=== PATIENT | female | born 1990 | race Caucasian/White ===

== ENCOUNTER 2016-09-05 09:20 | Inpatient (IN) | payer OTHER ==
[2016-09-05 10:39] LABS: BASOPHIL 0.3 % (0-2.0); MCHC 34.5 g/dl (32.0-36.0); MEAN CELL VOLUME 86.9 fl (80-96); MEAN PLT VOLUME 9.6 fl (7.5-11.1); NEUTROPHILS 79.7 % (42.8-82.8); PLATELET COUNT 164 K/MM3 (134-434); RDW 12.8 % (11.6-15.6)
[2016-09-05 10:54] LABS: INR 0.89 (0.82-1.09); PROTHROMBIN TIME (PATIENT) 9.8 SEC (9.98-11.88)
[2016-09-05 10:57] LABS: ACTIVATED PTT 25.2 SECONDS (26.9-34.4)
[2016-09-05 11:02] VITALS: BMI 26.7
[2016-09-05 11:05] LABS: CALCIUM 9.3 mg/dL (8.5-10.1); COCKROFT - GAULT 121.125; CREATININE 0.8 mg/dL (0.55-1.02)
--- NOTE | 2016-09-05 11:10 | HP ---
Past Medical History - Primary Care Physician PCP:: Alberta Martinez - Admission Chief Complaint: 26 yrs 39.6/7 weeks admitted in labor , onset at 5.30 pm . History of Present Illness: PNC at [facility] . Wt gain 25 Lbs . work Up : B Pos, Rpr nr, Hbsag neg, Rubella pos, , Pngt 110, Afp neg,, Hiv neg, course uneventful. 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 Weeks Gestation by Dates: 39.6 ...EDC by Dates: 09/06/16 ...EDC by Sono: 09/06/16 Heme/Onc: Yes: Anemia Infectious Disease: Yes: STD's (HPV pos gc/ct neg). No: AIDS, HIV, Tuberculosis (Quantiferon neg) - Past Surgical History Past Surgical History: Yes: None Hx Myomectomy: No Hx Transabdominal Cerclage: No - Smoking History Smoking history: Never smoked - Alcohol/Substance Use Hx Alcohol Use: No History of Substance Use: reports: None Home Medications - Allergies Allergies/Adverse Reactions: Allergies Allergy/AdvReac Type Severity Reaction Status Date / Time No Known Allergies Allergy Verified 09/05/16 11:02 - Home Medications Home Medications: Ambulatory Orders Vitamins (Sjr) - 1 tab PO DAILY 09/05/16 Physical Exam - Maternity Vital Signs: Selected Entries 09/05/16 10:54 Temperature 96 F L Pulse Rate 20 L Blood Pressure 137/79 Constitutional: Yes: Well Nourished, Mild Distress Eyes: Yes: WNL HENT: Yes: WNL Neck: Yes: WNL Cardiovascular: Yes: WNL Lungs: Clear to auscultation Breast(s): Yes: WNL - Abdominal Exam/OB Fundal Height: 38 Number of Fetuses: Single Presentation: Vertex Contractions: Yes Regularity: Irregular (q5-6 min) Intensity: Mild/Mod Monitor Mode: External Heart Rate (range): 130 Heart Rate Location: [facility] Category: I Accelerations: Uniform Decelerations: None - Vaginal Exam/OB Vaginal Bleediing: Bloody Show Speculum Exam: No Dilatation (cm): 4 Effacement (%): 80 Amniotic Membrane Status: Intact Presentation: Vertex/Position (exam at 10.30am) Station: -2 (-2/-1) - Physical Exam Musculoskeletal: Yes: WNL Extremities: Yes: WNL. No: Calf Tenderness Edema: Yes Edema: LLE: 1+, RLE: 1+ Integumentary: Yes: Rash (on Right cheek , erythematous large 2cm round plaque) , Tattoos Deep Tendon Reflex Grade: Normal +2 ...Motor Strength: WNL Psychiatric: Yes: WNL, Alert, Oriented - Labs Lab Results: CBC, BMP 09/05/16 10:13 Laboratory Tests 09/05/16 09/05/16 10:15 10:15 INR 0.89 PTT (Actin FS) 25.2 L Sodium 138 Potassium 3.9 Chloride 105 Carbon Dioxide 21 BUN 11 Creatinine 0.8 Random Glucose 91 Calcium 9.3 Laboratory Tests 09/05/16 10:20 Blood Type B POSITIVE Problem List - Problems (1) with 39 completed weeks gestation Code(s): Z3A.39 - 39 WEEKS GESTATION OF (2) Labor established Code(s): EEY3301 - Assessment/Plan 26 yrs 39.6/7 weeks in labor GBS neg, Plan pt prefers epidural labor analgesia Pitocin Augmentation . Trial vaginal delivery
[2016-09-05] MEDS ORDERED: BUTORPHANOL TARTRATE 1 MG/ML VIAL IVPB PRN (11:22)
[2016-09-05] MEDS ORDERED: ELECTROLYTE-148 SOLN 1,000 ML IV SCH (11:30)
[2016-09-05] MEDS ORDERED: OXYTOCIN 15 UNITS/ LR 250 ML 250 ML IVPB SCH (11:30)
[2016-09-05] MEDS ORDERED: FENTANYL/BUPIVACAINE/NS/PF - PCEA - 50 ML DISP.SYRIN EP SCH (13:00)
--- NOTE | 2016-09-05 14:55 | PN ---
Progress Note, Labor Vaginal Exam #1 Labor Exam Date: 09/05/16 Labor Exam Time: 14:40 Heart Rate (range): 110-120 Dilatation: 8 Effacement (%): 100 Amniotic Membrane Status: Ruptured (SROM clear at 1435. hr) Station: +1 Remarks: fhr cat-1 uc 2-3 min Pitocin Augmentation started at 11.30 hr Epidural labor analgesia was given at 13.00hr Vaginal Exam #2 Labor Exam Date: 09/05/16 Labor Exam Time: 16:10 Heart Rate (range): 110-115 Dilatation: antlip Effacement (%): 100 Amniotic Membrane Status: Ruptured Presentation: Vertex/Position Station: +2 Remarks: fhr cat-1 uc2min pt has no sensation of pressure yet Selected Entries 09/05/16 09/05/16 09/05/16 14:01 14:15 14:30 Temperature 97.5 F L Pulse Rate 20 L 66 Blood Pressure 121/78 133/83 09/05/16 14:45 Temperature Pulse Rate 66 Blood Pressure 118/97 Vaginal Exam #3 Labor Exam Date: 09/05/16 Labor Exam Time: 17:00 Heart Rate (range): 100-110 Dilatation: 10 Effacement (%): 100 Amniotic Membrane Status: Ruptured Presentation: Vertex/Position Station: +3 Remarks: fhr cat-1 uc 1-2 min pt encouraged to push Selected Entries 09/05/16 17:00 Temperature 97.8 F Pulse Rate 64 Blood Pressure 133/84
--- NOTE | 2016-09-05 18:20 | PN ---
Delivery - Delivery Vaginal Delivery: No Problems, Spontaneous Type of Anesthesia: Epidural Episiotomy/Laceration: Midline (episiotomy sutured in layers with chr catgut #2 pr mucosa & sphincter was intact) EBL (cc): 350 Delivery, Single - Stages of Labor Date 1st Stage Initiatied: 09/05/16 Time 1st Stage Initiated: 05:30 Date 2nd Stage Initiated: 09/05/16 Time 2nd Stage Initiated: 17:00 Date of Delivery: 09/05/16 Time of Delivery: 17:38 Date Placenta Delivered: 09/05/16 Time Placenta Delivered: 17:45 Placenta: Yes: Manual Removal, Uterine Exploration - Condition of Infant Gender: Male Weight: 7 lb 2 oz Position: Right, OA (3hrs 10 min) - 1 Minute Total Score: 9 5 Minutes Total Score: 9 - Feeding Plan Initial Plan: Exclusive throughout hospitalization Remarks - Remarks Remarks: 26 yrs 39.6/7 weeks admitted in labor. GBS neg pnc at [address] [place] [address] Pitocin augmentation was given intrapartum course was uneventful
[2016-09-05] MEDS ORDERED: BENZOCAINE 28 GM HEMORRHOIDAL OINTMENT TP PRN (18:24)
[2016-09-05] MEDS ORDERED: WITCH HAZEL 50% (TUCKS) 40 PAD/JAR PAD TP PRN (18:24)
[2016-09-05] MEDS ORDERED: BISACODYL 10 MG SUPP.RECT RC PRN (18:24)
[2016-09-05] MEDS ORDERED: BENZOCAINE 20% 57 GM BOTTLE TP PRN (18:24)
[2016-09-05] MEDS ORDERED: METHYLERGONOVINE MALEATE 0.2 MG/1 ML AMP IM PRN (18:24)
[2016-09-05] MEDS ORDERED: oxyCODONE HCL 5 MG TABLET PO PRN (18:24)
[2016-09-05] MEDS ORDERED: D5W-LR W/ 20 UNITS OXYTOCIN 1,000 ML IV SCH (18:30)
[2016-09-06] MEDS: ACETAMINOPHEN 325 MG TABLET (FP) PO PRN ×2 (01:25→21:56)
[2016-09-06] MEDS: IBUPROFEN 600 MG TABLET (FP) PO PRN ×2 (01:26→21:55)
[2016-09-06 07:08] LABS: BASOPHIL 0.4 % (0-2.0); EOSINOPHIL 0.3 % (0-4.5); MCH 29.8 pg (25.7-33.7); MCHC 34.4 g/dl (32.0-36.0); MEAN CELL VOLUME 86.6 fl (80-96); MEAN PLT VOLUME 9.9 fl (7.5-11.1); NEUTROPHILS 78.1 % (42.8-82.8); PLATELET COUNT 141 K/MM3 (134-434); RDW 12.6 % (11.6-15.6); WHITE BLOOD COUNT 15.8 K/mm3 (4.0-10.0)
[2016-09-06] MEDS: FERROUS SO4 325 MG TABLET (FP) PO SCH ×2 (08:31→17:42)
[2016-09-06] MEDS: PRENATAL VITAMINS W/ FOLIC ACID TABLET (FP) PO SCH (10:25)
--- NOTE | 2016-09-06 14:28 | PN ---
Post Progress Note - Subjective Subjective: no complains Post Day: 1 Type of Delivery: Vital Signs: Vital Signs Temperature 98.1 F 09/06/16 13:42 Pulse Rate 73 09/06/16 13:42 Respiratory Rate 18 09/06/16 13:42 Blood Pressure 133/80 09/06/16 13:42 O2 Sat by Pulse Oximetry (%) 100 09/05/16 17:00 Breast Exam: Yes: Soft. No: Engorged Uterus: Yes: Fundus below umbilicus, Non-tender. No: Fundus Firm Lochia: Yes: Rubra Lochia, amount: Moderate Extremities: Yes: Calves non-tender Perineum: Yes: Episiotomy (healing ) Activity: Ambulating - Labs Labs: CBC WBC 15.8 K/mm3 (4.0-10.0) H D 09/06/16 06:30 RBC 3.77 M/mm3 (3.60-5.2) 09/06/16 06:30 Hgb 11.2 GM/dL (10.7-15.3) D 09/06/16 06:30 Hct 32.6 % (32.4-45.2) 09/06/16 06:30 MCV 86.6 fl (80-96) 09/06/16 06:30 MCHC 34.4 g/dl (32.0-36.0) 09/06/16 06:30 RDW 12.6 % (11.6-15.6) 09/06/16 06:30 Plt Count 141 K/MM3 (134-434) 09/06/16 06:30 MPV 9.9 fl (7.5-11.1) 09/06/16 06:30 Neutrophils % 78.1 % (42.8-82.8) 09/06/16 06:30 Lymphocytes % 14.8 % (8-40) 09/06/16 06:30 Monocytes % 6.4 % (3.8-10.2) 09/06/16 06:30 Eosinophils % 0.3 % (0-4.5) 09/06/16 06:30 Basophils % 0.4 % (0-2.0) 09/06/16 06:30 Problem List - Problems (1) with 39 completed weeks gestation Code(s): Z3A.39 - 39 WEEKS GESTATION OF (2) Labor established Code(s): [id number] - Assessment/Plan stable. plan discharge tomorrow.
[2016-09-06] MEDS ORDERED: SENNOSIDES/DOCUSATE COMBO (SENNA PLUS) TABLET (UD) PO PRN (22:00)
--- NOTE | 2016-09-07 07:17 | PN ---
Progress Note (short form) - Note Progress Note: ppd 2 doing well, no excess vaginal bleeding Current Medications Generic Name Dose Route Start Last Admin Trade Name Freq PRN Reason Stop Dose Admin Acetaminophen 650 mg 09/05/16 18:24 09/06/16 21:56 Tylenol - PO 650 mg Q3H PRN Administration PAIN Benzocaine 1 applic 09/05/16 18:24 Americaine Ointment - TP PRN PRN PAIN Benzocaine 1 spray 09/05/16 18:24 09/06/16 16:09 Americaine 20% [place] - TP 1 spray PRN PRN Administration PAIN Bisacodyl 10 mg 09/05/16 18:24 Dulcolax Suppository - RC PRN PRN CONSTIPATION Ferrous Sulfate 325 mg 09/06/16 08:00 09/06/16 17:42 Feosol - PO 325 mg BIDWM ERIN Administration Dextrose/Lactated Ringer's 1,000 mls @ 125 mls/hr 09/05/16 18:30 09/05/16 17:45 Pitocin 20 Units In D5-Lr - IV 125 mls/hr ASDIR ERIN Administration Ibuprofen 600 mg 09/05/16 18:24 09/06/16 21:55 Motrin - PO 600 mg Q4H PRN Administration PAIN Methylergonovine Maleate 0.2 mg 09/05/16 18:24 Methergine Injection - IM Q4H PRN EXCESSIVE BLEEDING (L&D) Oxycodone HCl 5 mg 09/05/16 18:24 Roxicodone - PO Q6H PRN PAIN Multivit/Folic Acid/Iron 1 tab 09/06/16 10:00 09/06/16 10:25 Vitamins (Sjr) - PO 1 tab DAILY ERIN Administration Senna/Docusate Sodium 2 tablet 09/06/16 22:00 Pericolace - PO HS PRN CONSTIPATION Witch Manuela/Glycerin 1 pad 09/05/16 18:24 09/06/16 16:10 Tucks Pads - TP 1 canister PRN PRN Administration PAIN CBC, BMP 09/06/16 06:30 09/05/16 10:15 Last Vital Signs Temp Pulse Resp BP Pulse Ox 98.0 F 83 18 138/83 100 09/06/16 22:00 09/06/16 22:00 09/06/16 22:00 09/06/16 22:00 09/05/16 17:00 uterus firm, non tender, no cva lochia mild no calf tenderness plan d/c home, rtc 4 weeks
[2016-09-07] MEDS: FERROUS SO4 325 MG TABLET (FP) PO SCH (09:36)
[2016-09-07] MEDS: PRENATAL VITAMINS W/ FOLIC ACID TABLET (FP) PO SCH (09:36)
[2016-09-07] MEDS: ACETAMINOPHEN 325 MG TABLET (FP) PO PRN (09:37)
[2016-09-07] MEDS: IBUPROFEN 600 MG TABLET (FP) PO PRN (09:38)
--- NOTE | 2016-09-07 10:57 | DS ---
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 c/o perineal soreness) Breast(s): Yes: WNL (attempting to BF , bottle feeding also) Musculoskeletal: Yes: WNL Extremities: Yes: WNL. No: Calf Tenderness Edema: LLE: Trace, RLE: Trace Integumentary: Yes: Tattoos Neurological: Yes: WNL, Alert, Oriented ...Motor Strength: WNL Psychiatric: Yes: WNL, Alert, Oriented Labs: CBC, BMP 09/06/16 06:30 09/05/16 10:15 Delivery - Delivery Vaginal Delivery: No Problems, Spontaneous Type of Anesthesia: Epidural Episiotomy/Laceration: Midline (episiotomy sutured in layers with chr catgut #2 pr mucosa & sphincter was intact) EBL (cc): 350 Delivery, Single - Stages of Labor Date 1st Stage Initiatied: 09/05/16 Time 1st Stage Initiated: 05:30 Date 2nd Stage Initiated: 09/05/16 Time 2nd Stage Initiated: 17:00 Date of Delivery: 09/05/16 Time of Delivery: 17:38 Time Placenta Delivered: 17:45 Placenta: Yes: Manual Removal, Uterine Exploration - 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 GBS neg pnc at [address] [place] [address] Pitocin augmentation was given intrapartum course was uneventful pp course uneventful discharge 09/07/16 Discharge Summary Reason For Visit: LABOR Current Active Problems Labor established (Acute) Normal spontaneous vaginal delivery (Acute) with 39 completed weeks gestation (Acute) Condition: Stable - Instructions Diet, Activity, Other Instructions: Post Instructions DIET: Continue good diet high in protein, calcium, and iron rich foods. Drink at least eight (8) glasses of water daily in addition to other fluids. ct Regular diet MEDICATIONS: Continue vitamins and iron as previously directed. Motrin and Tylenol may be taken for minor discomfort. ACTIVITY: Mild to moderate exercise may be started in two (2) weeks. Take frequent rest periods. Resume normal activity after six (6) week check up. WOUND CARE OF OPERATIVE SITE: Continue use of perineal bottle until vaginal discharge stops. Keep area clean. Shower daily. Keep abdominal wound dry. Report any drainage or redness to physician. Tub baths, tampons and douches are not permitted for [address] Breast feeding & or Bottle feeding BREAST CARE: (For those that are not breast feeding): If engorgement occurs: Wear tight fitting bra. Take Tylenol or Motrin for pain. Apply cold packs (ice in bags to each breast ) FAMILY PLANNING: There are many control alternatives to pursue and they should be discussed at your first office visit. You may resume sexual activity after your six (6) week check up. (Remember, breast feeding is not a contraceptive) NEXT PHYSICIAN APPOINTMENT: Be certain to call for a six (6) week appointment, unless otherwise directed. [facility] or got to Emergency Dept if you have any of the following: Heavy vaginal bleeding Painful urination Leg pain Unusual odor noted to vaginal bleeding High fever Red streaking noted on breast Referrals: Alberta Martinez MD [Staff Physician] - Disposition: HOME - Home Medications Comprehensive Discharge Medication List: Ambulatory Orders Vitamins (Sjr) - 1 tab PO DAILY 09/05/16 Acetaminophen [Tylenol .Regular Strength -] 650 mg PO Q3H PRN #0 tablet Benzocaine [Americaine 20% [place] -] 1 spray TP PRN PRN #0 bottle 09/06/16 Ibuprofen [Motrin -] 200 mg PO Q4H PRN #0 tablet 09/06/16 Vitamins (Sjr) - 1 tab PO DAILY tablet 09/06/16 Witch Manuela 50% (Tucks) [Tucks Pads -] 1 pad TP PRN PRN #0 pad 09/06/16
[2016-09-07 11:29] VITALS: BP 124/57; PULSE 67; TEMP 98.1
== END 2016-09-07 11:40 | disposition home or self-care (01) | DRG 560 ==
LOC: JDEL 09:20 → JLDR 10:05 → J3W 20:10
PROVIDERS: ADMIT Obstetrics & Gynecology; ATTEND Obstetrics & Gynecology
PROC: 10E0XZZ Delivery of Products of Conception, External Approach (ICD-10-PCS; principal; 2016-09-05)
PROC: 0W8NXZZ Division of Female Perineum, External Approach (ICD-10-PCS; 2016-09-05)
DX: O80 Encounter for full-term uncomplicated delivery (principal); Z3A.39 39 weeks gestation of pregnancy; Z37.0 Single live birth
CPT/HCPCS: 36415; 59409; 80048; 85025; 85610; 85730; 86593; 86850; 86900; 86901

== ENCOUNTER 2019-09-08 15:03 | Inpatient (IN) | payer OTHER ==
[2019-09-08 16:11] VITALS: BMI 27.1
[2019-09-08] MEDS ORDERED: OXYTOCIN 30 UNITS in 0.9% NS 30 UNIT/500 ML INFUS.BAG IVPB ONE (17:19)
[2019-09-08] MEDS ORDERED: ELECTROLYTE-148 SOLN 1,000 ML IV SCH (17:45)
[2019-09-08] MEDS ORDERED: OXYTOCIN 30 UNITS in 0.9% NS 30 UNIT/500 ML INFUS.BAG IVPB SCH (17:45)
[2019-09-08 18:10] LABS: BASO % 0.3 % (0-2.0); EOS % 0.3 % (0-4.5); HEMATOCRIT 35.6 % (32.4-45.2); HEMOGLOBIN 11.9 GM/dL (10.7-15.3); LYMPH % 15.8 % (8-40); MCHC 33.5 g/dl (32.0-36.0); MEAN CELL VOLUME 89.4 fl (80-96); MONO % 5.3 % (3.8-10.2); NEUT % 78.3 % (42.8-82.8); PLATELET COUNT 178 K/MM3 (134-434); RBC 3.98 M/mm3 (3.60-5.2); RDW 13.3 % (11.6-15.6); WHITE BLOOD COUNT 12.9 K/mm3 (4.0-10.0)
[2019-09-08 18:16] LABS: INR 0.86 (0.83-1.09); PROTHROMBIN TIME (PATIENT) 10.1 SEC (9.7-13.0)
[2019-09-08 18:40] LABS: BLOOD UREA NITROGEN 8.3 mg/dL (7-18); CALCIUM 8.8 mg/dL (8.5-10.1); CREATININE 0.7 mg/dL (0.55-1.3)
[2019-09-08] MEDS ORDERED: OXYTOCIN 20 UNITS in 0.9% NS 20 UNIT/1,000 ML INFUS.BAG IV ONE (18:50)
[2019-09-08] MEDS: IBUPROFEN 600 MG TABLET (FP) PO PRN (19:25)
[2019-09-08] MEDS ORDERED: IBUPROFEN 600 MG TABLET (FP) PO ONE (19:25)
[2019-09-08] MEDS: ACETAMINOPHEN 325 MG TABLET (FP) PO PRN (19:25)
[2019-09-08] MEDS ORDERED: ACETAMINOPHEN 325 MG TABLET (FP) ONE (19:26)
[2019-09-08] MEDS ORDERED: BENZOCAINE 20% 57 GM BOTTLE TP PRN (19:45)
[2019-09-08] MEDS ORDERED: WITCH HAZEL 50% (TUCKS) 40 PAD/JAR PAD TP PRN (19:45)
[2019-09-08] MEDS ORDERED: METHYLERGONOVINE MALEATE 0.2 MG/1 ML AMP IM PRN (19:45)
[2019-09-08] MEDS ORDERED: OXYTOCIN 20 UNITS in 0.9% NS 20 UNIT/1,000 ML INFUS.BAG IV SCH (19:45)
[2019-09-08] MEDS ORDERED: BISACODYL 10 MG SUPP.RECT RC PRN (19:45)
[2019-09-08] MEDS ORDERED: BENZOCAINE 28 GM HEMORRHOIDAL OINTMENT TP PRN (19:45)
[2019-09-09] MEDS: FERROUS SO4 325 MG TABLET (FP) PO SCH ×2 (08:26→18:32)
[2019-09-09] MEDS: ACETAMINOPHEN 325 MG TABLET (FP) PO PRN ×3 (08:26→20:32)
[2019-09-09] MEDS: IBUPROFEN 600 MG TABLET (FP) PO PRN ×3 (08:26→20:33)
[2019-09-09 09:03] LABS: BASO % 0.4 % (0-2.0); EOS % 0.2 % (0-4.5); HEMATOCRIT 33.8 % (32.4-45.2); HEMOGLOBIN 11.5 GM/dL (10.7-15.3); LYMPH % 11.2 % (8-40); MCH 29.9 pg (25.7-33.7); MCHC 34.1 g/dl (32.0-36.0); MEAN CELL VOLUME 87.5 fl (80-96); MEAN PLT VOLUME 10.1 fl (7.5-11.1); MONO % 4.9 % (3.8-10.2); NEUT % 83.3 % (42.8-82.8); PLATELET COUNT 175 K/MM3 (134-434); RBC 3.86 M/mm3 (3.60-5.2); RDW 13.2 % (11.6-15.6); WHITE BLOOD COUNT 15.4 K/mm3 (4.0-10.0)
[2019-09-09] MEDS: PRENATAL VITAMINS W/ FOLIC ACID TABLET (FP) PO SCH (10:18)
[2019-09-09] MEDS ORDERED: SENNOSIDES/DOCUSATE COMBO (SENNA PLUS) TABLET (UD) PO PRN (22:00)
[2019-09-10] MEDS: FERROUS SO4 325 MG TABLET (FP) PO SCH (09:09)
[2019-09-10] MEDS: PRENATAL VITAMINS W/ FOLIC ACID TABLET (FP) PO SCH (09:09)
[2019-09-10 09:15] VITALS: BP 116/76; PULSE 76; TEMP 97.6
== END 2019-09-10 12:35 | disposition home or self-care (01) | DRG 560 ==
LOC: JDEL 15:03 → JLDR 15:45 → J3W 21:54
PROVIDERS: ADMIT Obstetrics & Gynecology; ATTEND Obstetrics & Gynecology
PROC: 0W8NXZZ Division of Female Perineum, External Approach (ICD-10-PCS; principal; 2019-09-08)
PROC: 10E0XZZ Delivery of Products of Conception, External Approach (ICD-10-PCS; 2019-09-08)
DX: O48.0 Post-term pregnancy (principal); O69.81X0 Labor and delivery complicated by cord around neck, without compression, not applicable or unspecified; Z3A.40 40 weeks gestation of pregnancy; Z37.0 Single live birth
CPT/HCPCS: 36415; 59409; 80048; 85025; 85610; 85730; 86780; 86850; 86900; 86901; U0003